=== PATIENT | male | born 1930 | race Caucasian/White ===

== ENCOUNTER 2021-01-12 10:14 | Emergency (ER) | payer MEDICARE, BC ==
[2021-01-12] MEDS ORDERED: Sodium Chloride 0.9% 10 ML Syringe FLUSH PRN (10:35)
--- NOTE | 2021-01-12 11:07 | EDM.PDOC ---
ED HPI GENERAL MEDICAL PROBLEM - General Chief Complaint: General Stated Complaint: WEAK/NOT EATING Time Seen by Provider: 01/12/21 10:18 Source of Information: Reports: Patient, Other (assisted living facility report) - History of Present Illness INITIAL COMMENTS - FREE TEXT/NARRATIVE: 89-year-old male presents to the emergency department today with a 2-day history of nausea, vomiting, and diarrhea. The patient lives in an assisted living facility here in [facility], and states that there has been a few other residents ill. He states he has not vomited or had any diarrhea today however. The patient d enies any abdominal pain associated with the nausea, vomiting, and diarrhea. Per the assisted living report, his blood pressure medications were held last evening and this morning due to systolic blood pressures in the 90s. Patient states he has not had much of an appetite over the course the past 2 days however he has been trying to drink plenty of fluids. He denies any hematemesis, hematochezia, or black tarry stools. He reports feeling fatigued today as well. Patient also has a history of insulin-dependent diabetes. Per the assisted living facility, they did hold his fast acting insulin today however he did receive his Lantus last evening. Patient was tested for Covid this morning and this did come back negative. - Related Data Allergies Allergy/AdvReac Type Severity Reaction Status Date / Time amlodipine Allergy Other Verified 01/12/21 10:30 metformin Allergy Other Verified 01/12/21 10:30 Penicillins Allergy Rash Verified 01/12/21 10:30 sitagliptin [From Januvia] Allergy Other Verified 01/12/21 10:30 ticagrelor [From Brilinta] Allergy Other Verified 01/12/21 10:30 Past Medical History HEENT History: Reports: Impaired Vision Cardiovascular History: Reports: High Cholesterol, Hypertension Respiratory History: Reports: COPD Gastrointestinal History: Reports: GERD Endocrine/Metabolic History: Reports: Diabetes, Type II - Past Surgical History Endocrine Surgical History: Reports: None Social & Family History - Tobacco Use Tobacco Use Status *Q: Never Tobacco User ED ROS GENERAL - Review of Systems Review Of Systems: Comprehensive ROS is negative, except as noted in HPI. ED EXAM, GENERAL - Physical Exam Exam: See Below Exam Limited By: No Limitations General Appearance: Alert, WD/WN, No Apparent Distress #1 Interpretation EKG Date: 01/12/21 Time: 13:07 Rhythm: NSR Rate (Beats/Min): 51 [place]: Normal P-Wave: Present QRS: Normal ST-T: Normal QT: Normal Comparison: NA - No Prior EKG EKG Interpretation Comments: Per Dr. Byrne interpretation: Sinus rhythm or ectopic atrial rhythm; if sinus first-degree AV block; low voltage; no acute STT changes Course - Vital Signs Text/Narrative:: Patient presents with a 2-day history of nausea, vomiting, and diarrhea. However, the patient states that today the vomiting and diarrhea have subsided and he is only still nauseated. Patient denied any abdominal pain noted with the nausea, vomiting, and diarrhea. Denies any fever or chills. He states his appetite has been decreased however he has been trying to increase his fluid intake to stay hydrated. Was slightly hypotensive last evening with systolic blood pressures in the 90s and his antihypertensive medications were held last evening and this morning per the assisted living facility report. I have ordered labs,, chest x-ray and urinalysis. Last Recorded V/S: Last Vital Signs Temp 97.6 F 01/12/21 10:25 Pulse 52 L 01/12/21 10:25 Resp 16 01/12/21 10:25 BP 118/49 L 01/12/21 10:25 Pulse Ox 97 01/12/21 10:25 - Orders/Labs/Meds Orders: Active Orders 24 hr Category Date Time Status EKG 12 Lead [EKG Documentation Completion] [RC] STAT Care 01/12/21 13:00 Active CORONAVIRUS COVID-19 LUC [MOLEC] Stat Lab 01/12/21 12:43 Ordered UA RFX SEPIDEH AND CULT IF INDIC [URIN] Stat Lab 01/12/21 10:36 Ordered Sodium Chloride 0.9% [Saline Flush] Med 01/12/21 10:35 Active 10 ml FLUSH ASDIRECTED PRN Saline Lock Insert [OM.PC] Stat Oth 01/12/21 10:35 Ordered Medication Orders Sodium Chloride (Sodium Chloride 0.9% 10 Ml Syringe) 10 ml FLUSH ASDIRECTED PRN PRN Reason: Keep Vein Open Last Admin: 01/12/21 10:42 Dose: 10 ml Documented by: SEFERINO Labs: Laboratory Tests 01/12/21 01/12/21 Range/Units 10:35 11:34 WBC 8.96 (4.23-9.07) K/mm3 RBC 3.20 L (4.63-6.08) M/mm3 Hgb 10.0 L (13.7-17.5) gm/dl Hct 30.6 L (40.1-51.0) % MCV 95.6 H (79.0-92.2) fl MCH 31.3 (25.7-32.2) pg MCHC 32.7 (32.2-35.5) g/dl RDW Std Deviation 46.5 H (35.1-43.9) fL Plt Count 267 (163-337) K/mm3 MPV 11.3 (9.4-12.3) fl Neut % (Auto) 60.4 (34.0-67.9) % Lymph % (Auto) 20.9 L (21.8-53.1) % [place] % (Auto) 9.6 (5.3-12.2) % Eos % (Auto) 8.5 H (0.8-7.0) Baso % (Auto) 0.6 (0.1-1.2) % Neut # (Auto) 5.42 H (1.78-5.38) K/mm3 Lymph # (Auto) 1.87 (1.32-3.57) K/mm3 [place] # (Auto) 0.86 H (0.30-0.82) K/mm3 Eos # (Auto) 0.76 H (0.04-0.54) K/mm3 Baso # (Auto) 0.05 (0.01-0.08) K/mm3 Sodium 130 L (136-145) mEq/L Potassium 5.4 H (3.5-5.1) mEq/L Chloride 98 (98-107) mEq/L Carbon Dioxide 23 (21-32) mEq/L Anion Gap 14.4 (5-15) BUN 95 H (7-18) mg/dL Creatinine 5.8 H (0.7-1.3) mg/dL Est Cr Clr Drug Dosing TNP Estimated GFR (MDRD) 9 (>60) mL/min BUN/Creatinine Ratio 16.4 (14-18) Glucose 87 (70-99) mg/dL Calcium 8.1 L (8.5-10.1) mg/dL Magnesium 2.5 H (1.8-2.4) mg/dL Total Bilirubin 0.3 (0.2-1.0) mg/dL AST 16 (15-37) U/L ALT 27 (16-63) U/L Alkaline Phosphatase 86 (46-116) U/L C-Reactive Protein 0.4 (<1.0) mg/dL Total Protein 6.5 (6.4-8.2) g/dl Albumin 2.7 L (3.4-5.0) g/dl Globulin 3.8 gm/dL Albumin/Globulin Ratio 0.7 L (1-2) Meds: Medications Generic Name Dose Route Start Last Admin Trade Name Freq PRN Reason Stop Dose Admin Sodium Chloride 10 ml 01/12/21 10:35 01/12/21 10:42 Sodium Chloride 0.9% 10 Ml Syringe FLUSH 10 ml ASDIRECTED PRN Administration Keep Vein Open Discontinued Medications Generic Name Dose Route Start Last Admin Trade Name Freq PRN Reason Stop Dose Admin Sodium Chloride 500 mls @ 500 mls/hr 01/12/21 12:59 01/12/21 13:08 Normal Saline IV 01/12/21 13:58 500 mls/hr .BOLUS ONE Administration Metoclopramide HCl 5 mg 01/12/21 11:22 01/12/21 11:39 Metoclopramide 10 Mg/2 Ml Sdv IVPUSH 01/12/21 11:23 5 mg ONETIME ONE Administration - Re-Assessments/Exams Free Text/Narrative Re-Assessment/Exam: 01/12/21 12:19 Radiologist impression portable view of the chest: Heart size is felt to be slightly enlarged. Tortuous thoracic aorta is seen. Lungs show no acute parenchymal change. Bony structures show mild scoliosis within the spine. 01/12/21 12:57 Hematology reveals a WBC of 8.96, hemoglobin 10.0, hematocrit 30.6, platelet count 267, chemistry reveals a sodium of 130, potassium 5.4, chloride 98, anion gap 14.4, BUN 95, creatinine 5.8, GFR is 9, calcium 8.1, magnesium 2.5, C- reactive protein 0.4 I discussed the patient his lab results and he states he does see Dr. Gutierrez, a respiratory care practitioner at [facility] in [place]. I have no history or any lab records for this patient. I have placed a call to speak with Dr. Matt castrejon and I am awaiting for the return call. 01/12/21 13:00 Dr. Gutierrez's nurse returned my call and she states that he would like the patient transported to [place] immediately. He request that I call [facility] call and speak to the hospitalist to have him transferred. Call was placed to [place] [id number] call and I did speak to Dr. Knapp, the hospitalist, and I discussed this case with him. He is aware the Dr. Gutierrez who does want to be consulted on the patient. He does not want me to treat the hyperkalemia at this time, he states that he feels like IV fluids are sufficient for the transfer and they will treat the hyperkalemia once he is at [facility] in [place]. I discussed the transfer with the patient and he is agreeable to this. Patient will be transferred by [facility]. Of note, the patient did have a Covid test done at his assisted living facility this morning and it was negative. I did speak to the [place] [id number] call nurse and asked her if we need to repeat the Covid test and she states that we do not. Departure - Departure Time of Disposition: 13:34 Disposition: DC/Tfer to Acute Hospital 02 Condition: Fair Clinical Impression: Hyperkalemia Renal failure (ARF), acute on chronic Qualifiers: Acute renal failure type: unspecified Chronic kidney disease stage: unspecified stage Qualified Code(s): N17.9 - Acute kidney failure, unspecified - Discharge Information Referrals: Dennis De La Rosa MD [Primary Care Provider] - Forms: ED Department Discharge Sepsis Event Note (ED) - Evaluation Sepsis Screening Result: No Definite Risk - Focused Exam Vital Signs: Vital Signs Temp Pulse Resp BP Pulse Ox 01/12/21 10:25 97.6 F 52 L 16 118/49 L 97 - My Orders Last 24 Hours: My Active Orders 01/12/21 10:35 Sodium Chloride 0.9% [Saline Flush] 10 ml FLUSH ASDIRECTED PRN Saline Lock Insert [OM.PC] Stat 01/12/21 10:36 UA RFX SEPIDEH AND CULT IF INDIC [URIN] Stat 01/12/21 12:43 CORONAVIRUS COVID-19 LUC [MOLEC] Stat 01/12/21 13:00 EKG 12 Lead [EKG Documentation Completion] [RC] STAT - Assessment/Plan Last 24 Hours: My Active Orders 01/12/21 10:35 Sodium Chloride 0.9% [Saline Flush] 10 ml FLUSH ASDIRECTED PRN Saline Lock Insert [OM.PC] Stat 01/12/21 10:36 UA RFX SEPIDEH AND CULT IF INDIC [URIN] Stat 01/12/21 12:43 CORONAVIRUS COVID-19 LUC [MOLEC] Stat 01/12/21 13:00 EKG 12 Lead [EKG Documentation Completion] [RC] STAT
[2021-01-12] MEDS ORDERED: Metoclopramide 10 MG/2 ML SDV IVPUSH ONE (11:22)
--- NOTE | 2021-01-12 11:47 | CR ---
Chest: Portable view of the chest was obtained. Comparison: No prior chest imaging is available. Heart size is felt to be slightly enlarged. Tortuous thoracic aorta is seen. Lungs show no acute parenchymal change. Bony structures show mild scoliosis within the spine. Impression: 1. Findings as noted above. 2. Nothing acute is appreciated. Diagnostic code #2
[2021-01-12] MEDS ORDERED: Sodium Chloride 0.9% 500 ML IV ONE (12:59)
== END 2021-01-12 14:28 ==
LOC: JD.ED 10:14
DX: N17.9 Acute kidney failure, unspecified (principal); E87.5 Hyperkalemia; J44.9 Chronic obstructive pulmonary disease, unspecified; I12.9 Hypertensive chronic kidney disease with stage 1 through stage 4 chronic kidney disease, or unspecified chronic kidney disease; N18.9 Chronic kidney disease, unspecified; E11.22 Type 2 diabetes mellitus with diabetic chronic kidney disease; Z88.8 Allergy status to other drugs, medicaments and biological substances; Z88.0 Allergy status to penicillin
CPT/HCPCS: 36415; 71045; 80053; 83735; 85025; 86140; 93005; 96374; 99285; J2765; J7030; 99284